=== PATIENT | female | born 1985 | race Caucasian/White ===

== ENCOUNTER 2020-02-19 15:30 | Outpatient (CLI) | payer MEDICAID | END 2020-02-19 23:59 | disposition home or self-care (01) | LOC: D.MAMMO 15:30 | PROVIDERS: ATTEND Family Medicine | DX: N63.11 Unspecified lump in the right breast, upper outer quadrant (principal) ==

== ENCOUNTER → 2020-02-24 14:50 | Outpatient (CLI) | payer MEDICAID | END | disposition home or self-care (01) | LOC: D.US 14:30 | PROVIDERS: ATTEND Nurse Practitioner Family | DX: E88.2 Lipomatosis, not elsewhere classified (principal) ==